=== PATIENT | female | born 1970 | race Caucasian/White ===

== ENCOUNTER → 2021-06-30 | Outpatient (CLI) | payer OTHER ==
[~2021-06-30] MED LIST: CELEBREX 200 M200 M1 PO; FLONASE 0.05%50 MCG NARES; FOLIC ACID1 MG PO; HYDROCHLOROTHIA25 M1 PO; LEXAPRO 10 MG T10 M2 PO; OZEMPIC0.25 MG/0. SUBQ; PROTONIX 20 MG20 MG PO; ROSUVASTATIN CA10 MG PO; VITAMIN D325 MC2; ZESTRIL40 MG PO
== END ==
LOC: LAB 06-29 09:36
PROVIDERS: ATTEND Student in an Organized Health Care Education/Training Program
DX: Z01.812 Encounter for preprocedural laboratory examination (principal); Z20.822 Contact with and (suspected) exposure to COVID-19

== ENCOUNTER → 2021-07-03 | Outpatient (CLI) | payer BC ==
[~2021-07-03] VITALS: Ht 165.1 cm; Wt 112.5 kg
--- NOTE | 2021-07-07 12:07 | PATH ---
[facility] [address] [place] [address] PATHOLOGY RPT PROCEDURE Name: BECCA LÓPEZ Room #: REG GAIL M.R.#: [id number] Admission: 07/03/21 Date of : 74 Discharge: Report #: [id number] Path Case #: [id number] [facility] Accession Number: [id number] . 01 Material submitted: . sigmoid colon - SIGMOID COLON POLYP BIOPSY . 01 Clinical history: . COLONOSCOPY HX XAVIER SYNDROME . 02 Diagnosis: Sigmoid colon polyp, polypectomy: - Polypoid colonic mucosa with focal hyperplastic changes. - Negative for high-grade dysplasia or malignancy. (ANK:kavon; 07/05/2021) MBR 07/05/2021 1130 Local . 02 Electronically signed: . Sara Zhou MD, Pathologist NPI- [id number] . 01 Gross description: . The specimen is received in formalin, labeled "Becca López, sigmoid colon polyp biopsy". Received is a segment of pale craig tissue measuring 0.3 cm in maximum dimensions. The specimen is submitted entirely in cassette A1. (CAA; 07/04/2021) QAC/QAC 07/04/2021 0852 Local . 02 Pathologist provided ICD-10: Z12.11 . 02 CPT . 055325 Specimen Comment: A courtesy copy of this report has been sent to [phone] Specimen Comment: [id number] Specimen Comment: Report sent to / DR CARSON Specimen Comment: A duplicate report has been generated due to demographic updates. Performed at: [address] [id number] [facility] [address] [place] [id number] MD Mariano Manuel MD Phone: [phone] Performed at: 02 [facility] [address] [place] [address] PATHOLOGY RPT PROCEDURE Name: BECCA LÓPEZ Room #: REG CLI [facility].#: [id number] Admission: 07/03/21 Date of : 74 Discharge: Report #: [id number] Path Case #: [id number] [address] [place] [id number] MD Sara Zhou MD Phone: [phone]
== END | disposition home or self-care (01) ==
LOC: GI
PROVIDERS: ATTEND Internal Medicine Gastroenterology
DX: Z12.11 Encounter for screening for malignant neoplasm of colon (principal); K63.5 Polyp of colon; I10 Essential (primary) hypertension; E78.00 Pure hypercholesterolemia, unspecified; F32.9 Major depressive disorder, single episode, unspecified; F41.9 Anxiety disorder, unspecified; E11.9 Type 2 diabetes mellitus without complications; K21.9 Gastro-esophageal reflux disease without esophagitis; M19.90 Unspecified osteoarthritis, unspecified site; Z98.890 Other specified postprocedural states; Z79.899 Other long term (current) drug therapy; Z91.040 Latex allergy status; Z88.0 Allergy status to penicillin; Z88.8 Allergy status to other drugs, medicaments and biological substances
CPT/HCPCS: 62110; 62900